=== PATIENT | male | born 1970 | race Caucasian/White ===

== ENCOUNTER 2016-07-25 15:41 | Emergency (ER) | payer OTHER ==
--- NOTE | 2016-07-25 15:58 | EKG Report ---
Test Performed on : 07/25/2016 3:47:33 PM Test Reason : cp Blood Pressure : / mmHG Vent. Rate : 067 BPM Atrial Rate : 067 BPM P-R Int : 128 ms QRS Dur : 102 ms QT Int : 380 ms P-R-T Axes : 021 038 053 degrees QTc Int : 401 ms Normal sinus rhythm. with sinus arrhythmia. Normal ECG When compared with ECG of 12-APR-2011 12:44, No significant change was found Unconfirmed Result
[2016-07-25] MEDS ORDERED: ASPIRIN PO STA (16:17)
[2016-07-25] MEDS: NITROGLYCERIN SL PRN ×2 (16:35→16:40)
--- NOTE | 2016-07-25 16:40 | PROVIDER DOCUMENTATION ---
HPI-Chest Pain - General Source: patient - History of Present Illness-CP Location: reports: central, back (between shoulder blades) Quality of Pain: reports: sharp Severity in ED: moderate Onset/Duration: abrupt, this afternoon Context/Activities at Onset: reports: light activity (picking up dog), recent emotional stress (at work) Associated Symptoms: reports: back pain, dizziness, nausea. denies: edema, fatigue, fever/chills, shortness of breath, vomiting Nitro Today/Relief: 0.4 mg x 1, provided by ED Aspirin Treatment Today: 325 mg x 1, provided by ED Prior Chest Pain/Cardiac Workup: reports: cardiac cath (at [facility] with Yessenia 4 to 5 years ago), stress test (at [facility] with 4 to 5 years ago) Similar Symptoms Previously?: No Recently Seen Here or By Another Healthcare Provider: No <Jesus Cheney - Last Filed: 07/25/16 17:58> <Basia Blake - Last Filed: 07/25/16 18:40> - General Chief Complaint: Chest Pain Stated Complaint: cp,dizzy Time Seen by Provider: 07/25/16 16:16 Allergies/Adverse Reactions: Patient Allergies Allergy/AdvReac Type Severity Reaction Status Date / Time No Known Allergies Allergy Verified 07/25/16 17:03 Home Medications: Home Medication List Medication Instructions Recorded Confirmed Last Taken Type Aspirin 81 mg PO DAILY 07/25/16 07/25/16 07/25/16 History Metoprolol [Lopressor] 25 mg PO DAILY 07/25/16 07/25/16 07/24/16 History Omeprazole 40 mg PO DAILY 07/25/16 07/25/16 07/25/16 History Ondansetron Odt [Zofran 8Mg Odt] 8 mg PO Q8H PRN PRN #20 tablet 07/25/16 Unknown Rx SIMVAstatin [Zocor] 40 mg PO QHS 07/25/16 07/25/16 07/24/16 History Tamsulosin [Flomax] 0.8 mg PO DAILY 07/25/16 07/25/16 07/24/16 History - History of Present Illness-CP Nature of Presenting Problem: Patient is a 45 y/o M that presents to the ER after having pain between shoulder blades and chest pressure after going to picker tender his 10lb dog. Patient reports having dizziness and nausea with it. He called his friend who had a heart attack and his chest pressure got worse. 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 ( Jesus Cheney) Review of Systems - Adult - REVIEW OF SYSTEMS - ADULT Constitutional: denies: chills, fever Eyes: reports: no symptoms reported Ears, Nose, Mouth & Throat: reports: no symptoms reported Cardiovascular: reports: chest pain. denies: palpitations, syncope Respiratory: denies: cough, wheezing Gastrointestinal: reports: nausea. denies: abdominal pain, diarrhea, vomiting Genitourinary: reports: no symptoms reported Musculoskeletal: reports: back pain. denies: joint pain, neck pain Integumentary: reports: no symptoms reported Neurological: reports: dizziness/vertigo. denies: headache/migraines Psychiatric: reports: no symptoms reported Endocrine: reports: no symptoms reported Hematologic/Lymphatic: reports: no symptoms reported Allergic/Immunologic: reports: no symptoms reported All Other Systems: Reviewed and Negative <Jesus Cheney - Last Filed: 07/25/16 17:58> Past History - Adult - PAST MEDICAL HISTORY-ADULT Review of Records: reports: Old Records Reviewed, Nursing Assessment Review, Medications Reviewed Cardiovascular: reports: other (congential heart defect with vascular of his heart) <Jesus Cheney - Last Filed: 07/25/16 17:58> - PAST MEDICAL HISTORY-ADULT Review of Records: reports: Old Records Reviewed, Nursing Assessment Review, Medications Reviewed, Social history reviewed & non-contributory. Major Childhood Illnesses: reports: denies history Cardiovascular: reports: congenital heart disease, hyperlipidemia Respiratory: reports: denies history Gastrointestinal: reports: denies history Genitourinary: reports: denies history Musculoskeletal: reports: denies history Neurological: reports: denies history Endocrine/Immune: reports: denies history Other Conditions: reports: denies history - PRIOR SURGERIES/PROCEDURES Surgical/Procedure History: reports: reviewed, not pertinent - FAMILY HISTORY Family History: reviewed, not pertinent - SOCIAL HISTORY Smoking: less than 1 pack/day Provider spent 3-5 mins advising pt. on dangers of tobacco.: Discussed manners to quit use, and f/u contacts for add'l counseling. Substance Use: none/never Alcohol Use Frequency: occasionally Living Situation: family <Basia Blake - Last Filed: 07/25/16 18:40> Physical Exam-General - PHYSICAL EXAM-ADULT Initial Vital Signs Reviewed: Yes - CONSTITUTIONAL General Appearance: alert, no apparent distress - EYES Eyes: PERRL/EOMI, pink conjunctivae - HEAD, EARS, NOSE, MOUTH & THROAT HENMT: normocephalic/atraumatic, moist mucous membranes, normal ENT inspection - NECK Neck: full range of motion, normal inspection. negative: lymphadenopathy - RESPIRATORY Respiratory: chest non-tender, lungs clear, normal breath sounds, no respiratory distress, no accessory muscle use - CARDIOVASCULAR Cardiovascular: regular rate, rhythm, no edema, no murmur - GASTROINTESTINAL (ABDOMEN) Abdominal Exam: normal bowel sounds, non tender, soft, no organomegaly, no pulsatile mass - MUSCULOSKELETAL Back Exam: normal inspection, no CVA tenderness, no vertebral tenderness Extremity: normal range of motion, normal inspection, no pedal edema, normal capillary refill, pelvis stable - SKIN Integumentary: normal color, warm/dry - NEUROLOGIC Neurologic: grossly normal, no motor/sensory deficits - PSYCHIATRIC Psych/Mental Status: normal mood/affect, normal thought content, normal thought process, oriented x 3 <Jesus Cheney - Last Filed: 07/25/16 17:58> Progress - EKG 1 Time of EKG reading by physician:: 15:47 EKG Read and Signed by:: Lester Gonzalez EKG Interpretation (*Must complete 3 of following elements*): Normal Rate: 67 Rhythm: NSR [place]: normal QRS: normal [place] Interval: normal ST Wave: normal <Jesus Cheney - Last Filed: 07/25/16 17:58> <Basia Blake - Last Filed: 07/25/16 18:40> - PLAN OF CARE/RESULTS Progress/Plan/Lab Results: plan of care-cardiac work up (Jesus Cheney) Vital Signs Temp Pulse Resp BP Pulse Ox 07/25/16 17:59 57 L 17 113/71 98 07/25/16 16:42 82 27 H 156/108 98 07/25/16 15:48 98.0 F 73 20 144/94 100 No Known Allergies Allergy (Verified 07/25/16 17:03) Aspirin 81 mg PO DAILY 07/25/16 Metoprolol [Lopressor] 25 mg PO DAILY 07/25/16 Omeprazole 40 mg PO DAILY 07/25/16 SIMVAstatin [Zocor] 40 mg PO QHS 07/25/16 Tamsulosin [Flomax] 0.8 mg PO DAILY 07/25/16 Laboratory 07/25/16 07/25/16 07/25/16 17:55 17:55 16:34 WBC RBC Hgb Hct MCV MCH MCHC RDW Std Deviation Plt Count MPV Immature Gran % (Auto) Neut % (Auto) Lymph % (Auto) [place] % (Auto) Eos % (Auto) Baso % (Auto) Immature Gran # (Auto) Neut # (Auto) Lymph # (Auto) [place] # (Auto) Eos # (Auto) Baso # (Auto) PT INR PTT (Actin FS) D-Dimer Sodium Potassium Chloride Carbon Dioxide Anion Gap BUN Creatinine Estimated GFR/1.73 m2 BUN/Creatinine Ratio Glucose Calculated Osmolality Calcium Magnesium Total Bilirubin AST ALT Alkaline Phosphatase Creatine Kinase 99 Troponin T < 0.010 < 0.010 Skl-M-Jnwgrhybknm Pept Total Protein Albumin Globulin Albumin/Globulin Ratio 07/25/16 07/25/16 07/25/16 16:34 16:34 16:34 WBC RBC Hgb Hct MCV MCH MCHC RDW Std Deviation Plt Count MPV Immature Gran % (Auto) Neut % (Auto) Lymph % (Auto) [place] % (Auto) Eos % (Auto) Baso % (Auto) Immature Gran # (Auto) Neut # (Auto) Lymph # (Auto) [place] # (Auto) Eos # (Auto) Baso # (Auto) PT 10.2 INR 0.96 PTT (Actin FS) 26.8 D-Dimer 0.13 Sodium Potassium Chloride Carbon Dioxide Anion Gap BUN Creatinine Estimated GFR/1.73 m2 BUN/Creatinine Ratio Glucose Calculated Osmolality Calcium Magnesium Total Bilirubin AST ALT Alkaline Phosphatase Creatine Kinase Troponin T Ani-J-Dzzslchfsnk Pept 22 Total Protein Albumin Globulin Albumin/Globulin Ratio 07/25/16 07/25/16 16:34 16:34 WBC 6.28 RBC 5.27 Hgb 14.8 Hct 42.8 MCV 81.2 MCH 28.1 MCHC 34.6 RDW Std Deviation 12.9 Plt Count 242 MPV 10.1 Immature Gran % (Auto) 0.0 Neut % (Auto) 35.6 L Lymph % (Auto) 52.9 H [place] % (Auto) 7.3 Eos % (Auto) 3.7 Baso % (Auto) 0.5 Immature Gran # (Auto) 0.00 Neut # (Auto) 2.24 Lymph # (Auto) 3.32 [place] # (Auto) 0.46 Eos # (Auto) 0.23 Baso # (Auto) 0.03 PT INR PTT (Actin FS) D-Dimer Sodium 140 Potassium 4.1 Chloride 103 Carbon Dioxide 25 Anion Gap 12 BUN 14 Creatinine 0.9 Estimated GFR/1.73 m2 > 60 BUN/Creatinine Ratio 16 Glucose 96 Calculated Osmolality 280 Calcium 9.0 Magnesium 2.1 Total Bilirubin 0.38 AST 22 ALT 26 Alkaline Phosphatase 83 Creatine Kinase 107 Troponin T Pvp-R-Htristocfad Pept Total Protein 6.8 Albumin 4.4 Globulin 2.4 Albumin/Globulin Ratio 1.8 Orders Category Date Time Status Cardiac Monitoring DIRECTED Care 07/25/16 16:18 Active Saline Loc NOW Care 07/25/16 16:18 Active CHEST-2 VIEWS [RAD] Stat Exams 07/25/16 16:18 Taken CBC WITH ELECTRONIC DIFF [HEME] Stat Lab 07/25/16 16:34 Completed CK PROFILE [SP CHEM] Stat Lab 07/25/16 16:34 Completed CK PROFILE [SP CHEM] Stat Lab 07/25/16 17:55 Completed COMPREHENSIVE METABOLIC PANEL [CHEM] Stat Lab 07/25/16 16:34 Completed D-DIMER [CHEM] Stat Lab 07/25/16 16:34 Completed MAGNESIUM [CHEM] Stat Lab 07/25/16 16:34 Completed PRO B-NATRIURETIC PEPTIDE Stat Lab 07/25/16 16:34 Completed PROTIME WITH INR [COAG] Stat Lab 07/25/16 16:34 Completed PTT [COAG] Stat Lab 07/25/16 16:34 Completed TROPONIN T Stat Lab 07/25/16 16:34 Completed TROPONIN T Stat Lab 07/25/16 17:55 Completed Aspirin Med 07/25/16 16:17 Discontinued 325 mg PO STAT STA Nitroglycerin Sl [Nitroglycerin] Med 07/25/16 16:17 Active 0.4 mg SL Q5M PRN PRN EKG [EKG] Stat Ther 07/25/16 15:55 Draft EKG [EKG] Stat Ther 07/25/16 17:35 Ordered (Basia Blake) Departure <Jesus Cheney - Last Filed: 07/25/16 17:58> - Departure Time of Disposition Order: 18:39 Certified Medical Emergency: Emergent <Basia Blake - Last Filed: 07/25/16 18:40> - Departure DIAGNOSIS: Atypical chest pain Disposition: HOME 01 Condition: Stable Additional Instructions: Follow up with Dr. Omalley, cardiology ED Follow Up Instructions: You have been treated by a care provider in the Emergency Department. These instructions are being provided to you so you can have an understanding of how to care for yourself upon discharge. Upon discharge from the Emergency Department, you are responsible for making arrangements for follow-up care by a physician of your choice. Take all prescribed medications as directed. Return to the Emergency Department immediately for any new or worsening symptoms. You may call the Physician Referral phone number at [phone] to obtain a list of Physicians who are taking new patients. Prescriptions: Ondansetron Odt [Zofran 8Mg Odt] 8 mg PO Q8H PRN PRN #20 tablet PRN Reason: Nausea Referrals: Kelvin Hooper MD [Primary Care Provider] - Rafa Omalley MD [STAFF PHYSICIAN] - Attestation - Scribe Verification/Attestation Scribe:: Jesus Cheney Acting as Scribe for:: Basia Blake Scribe documention review:: This chart was documented by a scribe and accurately reflects the service the provider performed and the decisions made by the provider. - Physician/ LUIS Attestation Patient care was provided by Advanced Practice Provider:: Yes Advanced Practice Provider:: Basia Blake Advanced Practice Provider documentation review:: The Mid-level provider documentation, treatment plan and medical decision making was reviewed by the physician who agrees with all treatment and medical decision making by the MLP. <Jesus Cheney - Last Filed: 07/25/16 17:58> - Physician/ LUIS Attestation Patient care was provided by Advanced Practice Provider:: Yes Advanced Practice Provider:: Basia Blake Advanced Practice Provider documentation review:: The Mid-level provider documentation, treatment plan and medical decision making was reviewed by the physician who agrees with all treatment and medical decision making by the MLP. <Basia Blake - Last Filed: 07/25/16 18:40> Physician Attestation - Physician Attestation I, the provider, attest to the following statement:: Basia Blake Physician documentation Attestation:: This documentation recorded by the scribe accurately reflects the service I personally performed and the decisions made by me. <Jesus Cheney - Last Filed: 07/25/16 17:58>
[2016-07-25 16:43] LABS: MANUAL DIFF NEEDED? NO
[2016-07-25 16:59] LABS: INR 0.96; PROTIME 10.2 Seconds (9.2-11.7); PTT 26.8 Seconds (22.0-36.0)
[2016-07-25 17:01] LABS: BASO% 0.5 % (0.0-0.8); EOS# 0.23 X1000 (0.0-0.7); EOS% 3.7 % (0.0-10.0); HEMATOCRIT 42.8 % (42.0-52.0); HEMOGLOBIN 14.8 g/dL (14.0-18.0); LYMPH# 3.32 X1000 (1.2-3.4); LYMPH% 52.9 % (20.5-51.1); MCH 28.1 PG (27-31); MCHC 34.6 g/dL (33-37); MCV 81.2 FL (81-99); MONO# 0.46 X1000 (0.11-0.59); MONO% 7.3 % (1.7-9.3); MPV 10.1 FL (7.4-10.4); NEUT% 35.6 % (42.2-75.2); PLT 242 X1000 (130-400); RBC 5.27 XMIL (4.7-6.1)
[2016-07-25 17:07] LABS: AGAP 12; ALBUMIN 4.4 g/dL (3.5-5.0); ALKALINE PHOSPHATASE 83 U/L (32-122); BUN 14 mg/dL (8-22); CHLORIDE 103 mmol/L (98-107); CK PROFILE 107 U/L (24-204); COSMO 280; GOT 22 U/L (10-34); GPT 26 U/L (10-44); MAGNESIUM 2.1 mg/dL (1.5-2.7); POTASSIUM 4.1 mmol/L (3.5-5.1); SODIUM 140 mmol/L (136-145); TCO2 25 mmol/L (25-35); TOTAL BILIRUBIN 0.38 mg/dL (0.20-1.00); TOTAL PROTEIN 6.8 g/dL (6.3-8.3)
--- NOTE | 2016-07-25 18:38 | ED EKG INTERP ---
EKG Interpretation - EKG Time of EKG reading by physician:: 18:08 EKG Read and Signed by:: Joshua Juarez EKG Interpretation (*Must complete 3 of following elements*): Normal Rate: 56 Rhythm: SINUS KAMARI W/SINUS ARRHYTHMIA [place]: normal QRS: normal AR Interval: normal ST Wave: normal Attestation - Scribe Verification/Attestation Scribe:: Lalita Arango Acting as Scribe for:: Joshua Juarez Scribe documention review:: This chart was documented by a scribe and accurately reflects the service the provider performed and the decisions made by the provider. Physician Attestation - Physician Attestation I, the provider, attest to the following statement:: Joshua Juarez Physician documentation Attestation:: This documentation recorded by the scribe accurately reflects the service I personally performed and the decisions made by me.
[2016-07-25 18:40] VITALS: BP 91/73
--- NOTE | 2016-07-26 06:09 | EKG Report ---
Test Performed on : 07/25/2016 6:07:22 PM Test Reason : cp Blood Pressure : / mmHG Vent. Rate : 056 BPM Atrial Rate : 056 BPM P-R Int : 130 ms QRS Dur : 098 ms QT Int : 404 ms P-R-T Axes : 021 035 044 degrees QTc Int : 389 ms Sinus bradycardia. with sinus arrhythmia. Otherwise normal ECG When compared with ECG of 25-JUL-2016 15:47, (Unconfirmed) No significant change was found Unconfirmed Result
--- NOTE | 2016-07-26 08:09 | Diag Imaging Result Document ---
PROCEDURE NAME: CHEST-2 VIEWS - 07/25/2016 TWO VIEWS OF THE CHEST: FINDINGS: There is no evidence of acute cardiac or pulmonary disease. Compared to 04/12/2011, there has been no significant change in the appearance of the chest. IMPRESSION: No acute disease.
== END 2016-07-25 18:58 | disposition home or self-care (01) ==
LOC: ED 15:41
DX: R07.89 Other chest pain (principal); R42 Dizziness and giddiness; R11.0 Nausea; M25.512 Pain in left shoulder; M25.511 Pain in right shoulder; M54.9 Dorsalgia, unspecified; E78.5 Hyperlipidemia, unspecified; F17.210 Nicotine dependence, cigarettes, uncomplicated; Z71.6 Tobacco abuse counseling; Z79.899 Other long term (current) drug therapy; Z79.82 Long term (current) use of aspirin
CPT/HCPCS: 71020; 80053; 82550; 83735; 83880; 84484; 85025; 85379; 85610; 85730; 93005